=== PATIENT | female | born 1950 | race Caucasian/White ===

== ENCOUNTER 2020-01-13 19:09 | Emergency (ER) | payer OTHER ==
[2020-01-13 19:21] VITALS: BMI 19.9
[2020-01-13 19:24] VITALS: BP 144/62; PULSE 80; TEMP 98.7
--- NOTE | 2020-01-13 21:34 | PDOC ---
Documentation entered by Ilia Loco SCRIBE, acting as scribe for Terrie Jameson MD. Terrie Jamseon MD: This documentation has been prepared by the Claudy shaw Angel, SCRIBE, under my direction and personally reviewed by me in its entirety. I confirm that the documentation accurately reflects all work, treatment, procedures, and medical decision making performed by me. History of Present Illness - General Chief Complaint: Laceration Stated Complaint: FINGER LAC Time Seen by Provider: 01/13/20 19:10 History Source: Patient Exam Limitations: No Limitations - History of Present Illness Initial Comments: 01/13/20 19:56 The patient is a 69 year old female with no significant past medical history, except mitral valve prolapse, who presents to the ED with a laceration to her right thumb. The patient states about an hour prior to her arrival she was going through her recycling and cut her thumb on a broken glass bottle. The patient states the bleeding has not stopped since the incident. The patient has no other complaints here in the ED. The patient is up to date with all her immunizations. Medications: Propranolol 40mg daily Non-smoker;no daily alcohol or other recreational drugs Past History - Medical History Allergies/Adverse Reactions: Allergies Allergy/AdvReac Type Severity Reaction Status Date / Time influenza virus vaccine, Allergy Hives Verified 02/20/18 19:03 specific [Influenza Virus Vacc,Specific] Home Medications: Ambulatory Orders propRANOLol HCL [Inderal] 40 mg PO DAILY 02/20/18 Anemia: No Asthma: No Cancer: Yes (1979 CERVICAL CA) Cardiac Disorders: Yes (MITRAL VALVE SYNDROME) CVA: No COPD: No CHF: No Dementia: No Diabetes: No GI Disorders: No Disorders: No HTN: No Hypercholesterolemia: No Liver Disease: No Seizures: No Thyroid Disease: No - Surgical History Abdominal Surgery: No Appendectomy: No Cardiac Surgery: No Cholecystectomy: No Lung Surgery: No Neurologic Surgery: No Orthopedic Surgery: Yes (1983 RIGHT KNEE ARTHROSCOPY) - Immunization History Immunization Up to Date: Yes (02-20-18) - Psycho-Social/Smoking History Smoking Status: No Smoking History: Never smoked Have you smoked in the past 12 months: No Number of Cigarettes Smoked Daily: 0 Review of Systems - Review of Systems Able to Perform ROS?: Yes Comments:: 01/13/20 19:58 GENERAL/CONSTITUTIONAL: No fever or chills. No weakness. HEAD, EYES, EARS, NOSE AND THROAT: No change in vision. No ear pain or discharge. No sore throat. CARDIOVASCULAR: No chest pain or shortness of breath. RESPIRATORY: No cough, wheezing, or hemoptysis. GASTROINTESTINAL: No nausea, vomiting, diarrhea or constipation. GENITOURINARY: No dysuria, frequency, or change in urination. MUSCULOSKELETAL: No joint or muscle swelling or pain. No neck or back pain. SKIN: +Laceration to right thumb. No rash NEUROLOGIC: No headache, vertigo, loss of consciousness, or change in strength/sensation. ENDOCRINE: No increased thirst. No abnormal weight change. HEMATOLOGIC/LYMPHATIC: No anemia, easy bleeding, or history of blood clots. ALLERGIC/IMMUNOLOGIC: No hives or skin allergy. *Physical Exam - Vital Signs Last Vital Signs Temp Pulse Resp BP Pulse Ox 98.7 F 80 16 144/62 96 01/13/20 19:10 01/13/20 19:10 01/13/20 19:10 01/13/20 19:10 01/13/20 19:10 - Physical Exam 01/13/20 20:11 GENERAL: Awake, alert, and fully oriented, in no acute distress HEAD: No signs of trauma EYES: PERRLA, EOMI, sclera anicteric, conjunctiva clear ENT: Auricles normal inspection, hearing grossly normal, nares patent, oropharynx clear without exudates. Moist mucosa NECK: Normal ROM, supple, no lymphadenopathy, JVD, or masses LUNGS: Breath sounds equal, clear to auscultation bilaterally. No wheezes, and no crackles HEART: Regular rate and rhythm, normal S1 and S2, no murmurs, rubs or gallops EXTREMITIES: +1.5cm full thickness flap type laceration of the palmar surface distal phalanx on the right thumb. No nail damage. Motor and sensory function intact. NEUROLOGICAL: Cranial nerves II through XII grossly intact. Normal speech, normal gait SKIN: Warm, Dry, normal turgor, no rashes or lesions noted. 01/13/20 20:34 Procedures - Laceration/Wound Repair Right Distal Plantar 1st digit Wound Length: to 2.5 cm Wound Explored: clean Wound's Depth, Shape: flap Irrigated w/ Saline: Yes Betadine Prep: No (Hibiclens/ethanol) Anesthesia: 1% Lidocaine Amount of Anesthetic (ccs): 2 Wound Repaired With: Sutures Suture Size/Type: 5:0 Number of Sutures: 4 Layer Closure: No Sterile Dressing Applied: Yes Splint Applied: No Sling Applied: No Progress: Right distal thumb cleansed using Hibiclens/ethanol solution and sterilely draped. 2 mL of 1% lidocaine injected into laceration for local anesthesia. Wound thoroughly irrigated using 50 mL of sterile normal saline. Wound edges closely approximated and wound closed using 4 interrupted sutures of 5-0 nylon. Bacitracin and dry sterile dressing applied followed by tube dressing. Patient tolerated procedure well Medical Decision Making - Medical Decision Making As noted above, this 69-year-old woman, up-to-date on her tetanus prophylaxis immunization and no prior history of wound healing problems presents with laceration to her right thumb sustained when she cut the area on broken glass bottle in her garbage just prior to presentation. Patient attempted direct pressure on the wound but had persistent bleeding and presents here. No history of nailbed injury, sensory or motor loss. Exam as noted above. Repair of the wound with 4 interrupted sutures of 5-0 nylon performed as noted above. Patient was discharged with instructions to keep the wound as dry as possible especially for the first 2 days, elevating at heart level or above tonight. She can use acetaminophen/ibuprofen/naproxen as needed for pain. She should return here or see her PMD, Dr. Vance if there are signs of infection in the wound. Otherwise, she should return here in 1 week for suture removal Discharge - Discharge Information Problems reviewed: Yes Clinical Impression/Diagnosis: Thumb laceration Qualifiers: Encounter type: initial encounter Damage to nail status: without damage Foreign body presence: without foreign body Laterality: right Qualified Code(s): S61.011A - Laceration without foreign body of right thumb without damage to nail, initial encounter Condition: Stable Disposition: HOME - Follow up/Referral Referrals: Rogelio Vance MD [Primary Care Provider] - - Patient Discharge Instructions Patient Printed Discharge Instructions: How to Care for a Laceration After Repair Additional Instructions: Keep original dressing intact as dry as possible for 2 days Elevate right hand (heart level or above) tonight After 2 days, can use protective Band-Aid during day/open at night Tylenol/ibuprofen/naproxen as needed for pain Return or see Dr. Vance if wound becomes swollen/red/painful Return here for removal of sutures on January 19 - Post Discharge Activity
== END 2020-01-13 20:09 | disposition home or self-care (01) ==
LOC: FER 19:09
PROC: 0HQFXZZ Repair Right Hand Skin, External Approach (ICD-10-PCS; principal; 2020-01-13)
DX: S61.011A Laceration without foreign body of right thumb without damage to nail, initial encounter (principal)
CPT/HCPCS: 99284-25

== ENCOUNTER 2020-01-20 16:57 | Emergency (ER) | payer OTHER ==
[2020-01-20 17:01] VITALS: BP 125/75; PULSE 78; TEMP 97.8; BMI 19.9
--- NOTE | 2020-01-20 17:26 | PDOC ---
Suture Removal/Wound Check HPI - History of Present Illness Chief Complaint: Suture/Staple Removal(Here) Stated Complaint: RIGHT THUMB SUTURE REMOVAL Time Seen by Provider: 01/20/20 17:25 History Source: Yes: Patient Exam Limitations: Yes: No Limitations Past History - Medical History Allergies/Adverse Reactions: Allergies Allergy/AdvReac Type Severity Reaction Status Date / Time influenza virus vaccine, Allergy Hives Verified 01/20/20 16:58 specific [Influenza Virus Vacc,Specific] Home Medications: Ambulatory Orders propRANOLol HCL [Inderal] 40 mg PO DAILY 02/20/18 Anemia: No Asthma: No Cancer: Yes (1979 CERVICAL CA) Cardiac Disorders: Yes (MITRAL VALVE SYNDROME) CVA: No COPD: No CHF: No Dementia: No Diabetes: No GI Disorders: No Disorders: No HTN: No Hypercholesterolemia: No Liver Disease: No Seizures: No Thyroid Disease: No - Surgical History Abdominal Surgery: No Appendectomy: No Cardiac Surgery: No Cholecystectomy: No Lung Surgery: No Neurologic Surgery: No Orthopedic Surgery: Yes (1983 RIGHT KNEE ARTHROSCOPY) - Immunization History Immunization Up to Date: (02-20-18) - Psycho-Social/Smoking History Smoking Status: No Smoking History: Never smoked Have you smoked in the past 12 months: No Number of Cigarettes Smoked Daily: 0 Information on smoking cessation initiated: No - Substance Abuse Hx (Audit-C & DAST Scrn) How often the patient has a drink containing alcohol: Never Score: In Men: 4 or > Positive; In Women: 3 or > Positive: 0 Screen Result (Pos requires Nsg. Audit-10AR): Negative In the last yr the pt used illegal drug/Rx for NonMed reason: No Score: Yes response is considered Positive: 0 Screen Result (Positive result requires Nsg. DAST-10): Negative *Physical Exam - Vital Signs Last Vital Signs Temp Pulse Resp BP Pulse Ox 97.8 F 78 16 125/75 98 01/20/20 16:57 01/20/20 16:57 01/20/20 16:57 01/20/20 16:57 01/20/20 16:57 Discharge - Discharge Information Problems reviewed: Yes Clinical Impression/Diagnosis: Visit for suture removal Condition: Good Disposition: HOME - Admission No - Follow up/Referral Referrals: Rogelio Vance MD [Staff Physician] - - Patient Discharge Instructions Patient Printed Discharge Instructions: DI for Suture Removal Additional Instructions: You were seen in the ER today for suture removal, and the 4 sutures were removed today. Please follow-up with your primary care doctor as needed to discuss your visit and make sure your symptoms have improved. Please return to the ER if you have any worsening pain, redness or drainage from the site, change in color to the skin, development of fevers or chills, loss of consciousness, inability to tolerate food or fluids, or any other concerns. - Post Discharge Activity
--- NOTE | 2020-01-20 17:41 | PDOC ---
Attending Attestation - Resident Resident Name: Manisha Centeno Discharge - Discharge Information Clinical Impression/Diagnosis: Visit for suture removal Condition: Good Disposition: HOME - Follow up/Referral Referrals: Rogelio Vance MD [Staff Physician] - - Patient Discharge Instructions Patient Printed Discharge Instructions: DI for Suture Removal Additional Instructions: You were seen in the ER today for suture removal, and the 4 sutures were removed today. Please follow-up with your primary care doctor as needed to discuss your visit and make sure your symptoms have improved. Please return to the ER if you have any worsening pain, redness or drainage from the site, change in color to the skin, development of fevers or chills, loss of consciousness, inability to tolerate food or fluids, or any other concerns. - Post Discharge Activity
== END 2020-01-20 17:40 | disposition home or self-care (01) ==
LOC: FER 16:57
DX: Z48.02 Encounter for removal of sutures (principal)
CPT/HCPCS: 99281-25

== ENCOUNTER 2022-09-12 20:12 | Inpatient (IN) | payer OTHER ==
[2022-09-12 20:51] LABS: HEMATOCRIT 41.3 % (32.4-45.2); HEMOGLOBIN 14.5 G/dL (10.7-15.3); MEAN CELL VOLUME 100.1 fl (80-96); PLATELET COUNT 252.4 10^3/uL (134-434); RBC 4.13 10^6/uL (3.60-5.2); RDW 13.2 % (11.6-15.6); WHITE BLOOD COUNT 8.4 10^3/uL (4.0-10.8)
[2022-09-12] MEDS ORDERED: ALPRAZolam 1 MG TABLET PO PRN (20:57)
[2022-09-12 21:02] LABS: ALBUMIN 4.4 g/dl (3.4-5.0); BILIRUBIN,TOTAL 1.5 mg/dl (0.2-1); CALCIUM 9.5 mg/dl (8.5-10); CREATININE 0.8 mg/dl (0.55-1.3); PHOSPHOROUS 4.9 mg/dl (2.5-4.9); TOT PROT 7.1 g/dl (6.4-8.2)
[2022-09-12] MEDS ORDERED: ALPRAZolam 0.25 MG TABLET ONE (21:10)
[2022-09-12] MEDS ORDERED: SODIUM CHLORIDE 1,000 ML IV ONE (21:19)
[2022-09-12 21:24] VITALS: RESP 18
[2022-09-12] MEDS ORDERED: ASPIRIN 81 MG CHEWABLE TABLETS PO ONE (22:08)
[2022-09-12] MEDS ORDERED: ASPIRIN 81 MG CHEWABLE TABLETS ONE (22:10)
[2022-09-12] MEDS ORDERED: ACETAMINOPHEN 325 MG TABLET (FP) PO PRN (22:36)
[2022-09-12 23:51] VITALS: BMI 22.6
[2022-09-13] MEDS ORDERED: SODIUM CHLORIDE 500 ML IV STA (00:08)
[2022-09-13 08:40] LABS: INR 1.07 (0.83-1.09); PROTHROMBIN TIME (PATIENT) 12.3 SEC (9.7-13.0)
[2022-09-13 08:42] LABS: ACTIVATED PTT 29.6 SECONDS (25.2-36.5)
[2022-09-13 08:49] LABS: ALBUMIN 3.6 g/dl (3.4-5.0); CALCIUM 8.6 mg/dl (8.5-10); CREATININE 0.7 mg/dl (0.55-1.3); PHOSPHOROUS 4.5 mg/dl (2.5-4.9); TOT PROT 5.7 g/dl (6.4-8.2)
[2022-09-13] MEDS ORDERED: HEPARIN NA (PORCINE) 5,000 UNITS/ML 1ML VIAL IVPUSH ONE (08:52)
[2022-09-13] MEDS ORDERED: HEPARIN NA (PORCINE) 5,000 UNITS/ML 1ML VIAL IVPUSH PRN ×2 (08:52)
[2022-09-13] MEDS ORDERED: HEPARIN INFUSION - 25,000 UNITS/500 ML INFUS.BAG IVPB SCH (09:00)
[2022-09-13 11:52] LABS: BASO % 0.6 % (0-2.0); EOS % 5.7 % (0-4.5); HEMOGLOBIN 12.2 GM/dL (10.7-15.3); LYMPH % 40.8 % (8-40); MCH 34.6 pg (25.7-33.7); MCHC 34.9 g/dl (32.0-36.0); MEAN PLT VOLUME 7.4 fl (7.5-11.1); MONO % 8.1 % (3.8-10.2); NEUT % 44.8 % (42.8-82.8); PLATELET COUNT 195 10^3/uL (134-434); RBC 3.53 M/mm3 (3.60-5.2); RDW 12.7 % (11.6-15.6); WHITE BLOOD COUNT 3.9 K/mm3 (4.0-10.0)
[2022-09-13 14:28] VITALS: BP 113/53; PULSE 68; TEMP 98.6
[2022-09-13] MEDS ORDERED: ATORVASTATIN CA 40 MG TABLET (FP) PO SCH (22:00)
[2022-09-14] MEDS ORDERED: ASPIRIN 81 MG CHEWABLE TABLETS PO SCH (10:00)
== END 2022-09-13 16:00 | disposition short-term general hospital (02) | DRG 282 ==
LOC: SUPCPDRO 20:12 → FER 20:12 → FM/S 22:46 → OBSVTOIN 09-13 11:42
PROVIDERS: ADMIT Internal Medicine; ATTEND Internal Medicine
DX: I21.4 Non-ST elevation (NSTEMI) myocardial infarction (principal); I34.1 Nonrheumatic mitral (valve) prolapse; R00.2 Palpitations; R00.0 Tachycardia, unspecified
CPT/HCPCS: 36415; 71045-TC-FY; 80053; 80061; 82550; 83036; 83735; 84100; 84443; 84484; 85025; 85027; 85610; 85730; 93005; 93010; 93306-TC; 99285-25; C9803-CS; G0378; J1644; U0003; U0005

== ENCOUNTER 2023-06-18 14:16 | Emergency (ER) | payer OTHER, MEDICARE ==
[2023-06-18 14:33] VITALS: BP 149/65; PULSE 69; RESP 16; TEMP 99.1; BMI 22.1
== END 2023-06-18 16:05 | disposition home or self-care (01) ==
LOC: FER 14:16
DX: R50.9 Fever, unspecified (principal); R05.9 Cough, unspecified; J06.9 Acute upper respiratory infection, unspecified; Z20.822 Contact with and (suspected) exposure to COVID-19
CPT/HCPCS: 0241U-QW; 71046-TC-FY; 99284-25